=== PATIENT | male | born 1960 | race Caucasian/White ===

== ENCOUNTER 2016-07-12 12:12 | Emergency (ER) | payer MEDICAID ==
[2016-07-12 13:31] VITALS: RESP 16; TEMP 98.1
--- NOTE | 2016-07-12 13:33 | EDPHY ---
H & P Time Seen by Provider: 07/12/16 13:24 HPI/ROS: This is a 56-year-old male presenting to the emergency room complaining of right thumb pain. Patient states he was carrying a water cooler earlier this morning dropped a cooler twisting right thumb. He states it looked like it was dislocated but then he pushed it back in place, increased pain with movement. Denies any other complaints or injuries REVIEW OF SYSTEMS: Constitutional: No fever chills Eyes: No blurred vision ENT: No sore throat Respiratory: No cough Cardiac: No chest pain Musculoskeletal: Right thumb pain with range of motion Skin: No rash Neurological: No headache or dizziness Smoking Status: Never smoked Physical Exam: CONSTITUTIONAL: patient appeared well nourished, non-ill appearing and normally developed. No acute distress. Vital signs as documented. HEENT: Normocephalic atraumatic NECK: FROM without pain RESP: Non-labored resp effort NEURO: AAOx3 EXTREMITIES: Right thumb swelling with tenderness at the PIP no obvious deformity no crepitus. Decreased range of motion due to pain. Positive cms intact SKIN: Warm and dry, no abrasions or lacerations PSYCH: Normal affect, calm, no distress Constitutional: Initial Vital Signs Temperature (C) 36.7 C 07/12/16 13:00 Heart Rate 57 L 07/12/16 13:00 Respiratory Rate 16 07/12/16 13:00 Blood Pressure 100/66 07/12/16 13:00 O2 Sat (%) 98 07/12/16 13:00 O2 Delivery Mode Room Air Allergies/Adverse Reactions: No Known Allergies Allergy (Verified 08/20/15 14:57) Home Medications: Medication Instructions Recorded Herbals/Supplements -Info Only 1 tab PO DAILY 08/20/15 Medical Decision Making - Diagnostics Imaging: Findings: There is a complex fracture involving the base of the distal phalanx of the thumb, with mild dorsal angulation of the distal phalanx. The IP joint remains normally aligned, but is involved by a proximal radial side, corner fracture. Overall mineralization is normal. Impression: Intra-articular fracture involving the base of the distal phalanx of the thumb. Dictated By: Desean Izquierdo MD *This report was compiled using a voice recognition dictation system and may contain typographical errors* 1245 T: PSCRIBE 07/12/16 1245 Electronically Signed by: Desean Izquierdo MD 07/12/16 1248 ED Course/Re-evaluation: Discussed plan for the patient: X-ray positive Intra-articular fracture involving the base of the distal phalanx of the thumb. ortho glass splint placed, CMS intact. Discharge home---> stable, discussed discharge instructions with patient and follow up Differential Diagnosis: Differential diagnosis considered but not limited to open fracture, metacarpal fracture and dislocation Departure - Departure Disposition: Home, Routine, Self-Care Clinical Impression: Fracture of thumb, closed Qualifiers: Encounter type: initial encounter Phalanx: distal Fracture alignment: nondisplaced Laterality: right Qualified Code(s): S62.524A - Nondisplaced fracture of distal phalanx of right thumb, initial encounter for closed fracture Condition: Good Instructions: Splint Care (ED), Thumb Fracture (ED) Additional Instructions: 1. Your x-ray shows positive fracture on your thumb 2. The splint on for the next 2-4 weeks, I would recommend following up with your primary care physician a repeat x-ray may be recommended in a few weeks 3. You can take Tylenol as needed, and pain is increased to can take ibuprofen as needed 4. You can use ice 15 minutes every hour for the next 6-12 hours to help with swelling Referrals: [facility],. [Clinic] - As per Instructions
[2016-07-12 14:10] VITALS: BP 102/72; PULSE 62; O2SAT 97
== END 2016-07-12 14:10 | disposition home or self-care (01) ==
DX: S62.524A Nondisplaced fracture of distal phalanx of right thumb, initial encounter for closed fracture (principal); W20.8XXA Other cause of strike by thrown, projected or falling object, initial encounter

== ENCOUNTER → 2016-08-12 | Outpatient (CLI) | payer MEDICAID | LOC: FIMAGING 13:53 | PROVIDERS: ATTEND Physician Assistant | DX: S62.521D Displaced fracture of distal phalanx of right thumb, subsequent encounter for fracture with routine healing (principal) ==

== ENCOUNTER 2016-09-28 08:04 | Emergency (ER) | payer MEDICAID ==
[2016-09-28 08:12] VITALS: BP 100/54; PULSE 54; RESP 16; TEMP 97.9; O2SAT 98
--- NOTE | 2016-09-28 09:23 | EDPHY ---
H & P Time Seen by Provider: 09/28/16 08:55 HPI/ROS: CHIEF COMPLAINT: Right foot pain HISTORY OF PRESENT ILLNESS: 56-year-old male presents to the emergency department with concerns about pain in his right foot. The patient states that he was walking around [place] and walked 27 miles on Wednesday, just 3 days ago. At that time he did not have any pain associated with this. [place] fine on Wednesday and then on Wednesday he states that he was sitting down and kind of twisted his right foot and immediately felt pain to the dorsal aspect of the right foot. Was initially having a great deal of difficulty bearing weight because of the pain. This has now since improved and he is able to bear weight. ROS: Denies numbness or tingling in his toes, pain in the right ankle or calf. Past Medical/Surgical History: Negative Social History: Single and lives in [place] Smoking Status: Former smoker Physical Exam: Examination the right foot reveals no obvious swelling. There is no warmth noted. Nontender to palpate over the lateral medial malleolus of the ankle. He has some mild pain with dorsiflexion. Unable to reproduce pain with palpation in the right foot. He is able to bear weight. There is no obvious ligament injury or abnormality. His calf is nontender. Achilles tendon is intact. Normal sensation to light touch with normal 2 point discrimination. No abrasions puncture wounds. No signs of cellulitis or infection. Constitutional: Initial Vital Signs Temperature (C) 36.6 C 09/28/16 08:05 Heart Rate 54 L 09/28/16 08:05 Respiratory Rate 16 09/28/16 08:05 Blood Pressure 100/54 L 09/28/16 08:05 O2 Sat (%) 98 09/28/16 08:05 O2 Delivery Mode Room Air Allergies/Adverse Reactions: No Known Allergies Allergy (Verified 09/28/16 08:08) Home Medications: Medication Instructions Recorded NK [No Known Home Meds] 09/28/16 MDM/Departure - MDM Imaging: I viewed and interpreted images myself ED Course/Re-evaluation: 56-year-old male presents to the emergency department with pain in his right foot. X-rays reveal no fractures. I do not see any evidence of stress fractures. Patient was offered postop shoe and the patient declined. He was given orthopedic referral. He was instructed to return to the emergency department if he had any other change in symptoms or if he felt worse in any way. - Depart Disposition: Home, Routine, Self-Care Clinical Impression: Right foot sprain Qualifiers: Encounter type: initial encounter Qualified Code(s): S93.601A - Unspecified sprain of right foot, initial encounter Condition: Good Instructions: Foot Sprain (ED) Additional Instructions: Postop shoe for comfort and support. Ibuprofen 600 mg every 8 hours as needed for pain. Weightbear as tolerated. Referrals: Pankaj Lopez MD [Medical Doctor] - 5-7 days, call for appt.
== END 2016-09-28 09:34 | disposition home or self-care (01) ==
DX: S93.601A Unspecified sprain of right foot, initial encounter (principal); Z87.891 Personal history of nicotine dependence; X58.XXXA Exposure to other specified factors, initial encounter